=== PATIENT | male | born 1985 | race Caucasian/White ===

== ENCOUNTER 2025-04-12 10:01 | Emergency (ER) | payer OTHER ==
[~2025-04-12] VITALS: Ht 162.6 cm; Wt 48.8 kg
[2025-04-12] MEDS: LIDOCAINE 1% MDV 20 ML VIAL SC ONE (10:30)
[2025-04-12] MEDS ORDERED: CEPH500C PO (11:43)
[2025-04-12 11:54] VITALS: BP 110/66; TEMP 97; O2SAT 98
== END 2025-04-12 12:02 | disposition home or self-care (01) ==
LOC: M ED 10:01
DX: S61.011A Laceration without foreign body of right thumb without damage to nail, initial encounter (principal); Y92.9 Unspecified place or not applicable; Y93.9 Activity, unspecified; Y99.0 Civilian activity done for income or pay; W26.8XXA Contact with other sharp object(s), not elsewhere classified, initial encounter; F17.210 Nicotine dependence, cigarettes, uncomplicated; F12.10 Cannabis abuse, uncomplicated; Z79.2 Long term (current) use of antibiotics

== ENCOUNTER 2025-07-02 11:34 | Emergency (ER) | payer OTHER ==
[~2025-07-02] VITALS: Ht 160 cm; Wt 49.3 kg
[~2025-07-02 11:34] MED LIST: CEPH500C PO
[2025-07-02 13:02] VITALS: TEMP 98.1
[2025-07-02] MEDS ORDERED: HOME MED LIST COMPLETE! XX SCH (13:10)
[2025-07-02 13:38] LABS: BASO # 0.1 10^3/uL (0.0-0.2); BASO % 0.9 % (0.0-1.0); EOS # 0.1 10^3/uL (0.0-0.5); EOS % 1.3 % (0.0-3.0); LYMPH # 3.4 10^3/uL (1.5-5.0); LYMPH % 31.9 % (24.0-44.0); MONO # 0.8 10^3/uL (0.0-0.8); MONO % 7.9 % (2.0-8.0); NEUTROPHILS # 6.1 10^3/uL (1.5-8.5); NEUTROPHILS % 57.5 % (36.0-66.0); PLATELET COUNT, AUTOMATED 203 10^3/uL (150-450)
[2025-07-02 14:11] LABS: ALT/SGPT 13.0 U/L (7.0-40); AST/SGOT 26.0 U/L (<34)
[2025-07-02] MEDS ORDERED: ISOVUE-370 76% 100 ML VIAL As Ordered ONE (15:11)
[2025-07-02 16:08] VITALS: BP 108/54; O2SAT 98
[2025-07-02] MEDS ORDERED: MIRA3350 PO (17:05)
[2025-07-02] MEDS ORDERED: HYDR25SU61 PR (17:05)
== END 2025-07-02 17:13 | disposition home or self-care (01) ==
LOC: M ED 11:34
DX: K64.8 Other hemorrhoids (principal); Z79.899 Other long term (current) drug therapy
CPT/HCPCS: 36415; 74174; 80047; 80076; 83605; 83690; 85025; 99284; Q9967